=== PATIENT | female | born 1970 | race African-American/Black ===

== ENCOUNTER 2016-12-13 14:13 | Emergency (ER) | payer MEDICAID ==
[~2016-12-13] VITALS: Ht 175.3 cm; Wt 100.0 kg
[2016-12-13 15:37] LABS: BASOPHILS % 0.7 % (0.0-2.0); EOSINOPHILS % 1.2 % (0.0-5.0); HEMATOCRIT. 29.6 % (36.0-48.0); HEMOGLOBIN. 9.4 g/dL (12.0-16.0); LYMPHOCYTES % 17.5 % (20.0-50.0); MEAN CORPUSCULAR HEMOGLOBIN 25.9 pg (28.0-32.0); MEAN CORPUSCULAR VOLUME 81.6 fL (81.0-99.0); MONOCYTES % 7.9 % (2.0-8.0); NEUTROPHILS % 72.7 % (40.0-76.0); PLATELET 233 x1000/uL (130-400); RED BLOOD CELL COUNT 3.63 mill/uL (4.2-5.4); RED CELL DISTRIBUTION WIDTH 18.1 % (11.6-14.6)
[2016-12-13 15:42] LABS: CHLORIDE 109 mEq/L (98-107)
[2016-12-13 15:46] LABS: CARBON DIOXIDE 23 mEq/L (21-32)
[2016-12-13 16:21] VITALS: BP 142/88
== END 2016-12-13 17:39 | disposition home or self-care (01) ==
LOC: ER 16:31
DX: R05 Cough (principal); R06.02 Shortness of breath; I10 Essential (primary) hypertension; D64.9 Anemia, unspecified; Z88.0 Allergy status to penicillin
CPT/HCPCS: 36415; 71010; 80053; 85025; 85379; 93005; 99285; Z7610